=== PATIENT | female | born 1995 | race Caucasian/White ===

== ENCOUNTER 2018-09-25 05:17 | Emergency (ER) | payer OTHER ==
[2018-09-25] MEDS ORDERED: DiphenhydrAMINE HCL 50 MG/ML VIAL ONE (06:09)
[2018-09-25] MEDS ORDERED: ONDANSETRON ODT 4 MG TAB ONE (06:09)
[2018-09-25 06:13] LABS: APPEARANCE,URINE CLOUDY (CLEAR); BILIRUBIN,URINE SMALL (NEGATIVE); COLOR,URINE RED (YELLOW); GLUCOSE, URINE (UA) NEGATIVE (NEGATIVE); KETONES,URINE 15 mg/dL (NEGATIVE); LEUKOCYTE ESTERASE ,URINE TRACE (NEGATIVE); NITRATE,URINE NEGATIVE (NEGATIVE); OCCULT BLOOD,URINE LARGE (NEGATIVE); PH,URINE 6.5 (5.0-8.0); PROTEIN,URINE 100 (NEGATIVE)
[2018-09-25 06:16] LABS: HCG,QUAL RESULT NEGATIVE (NEGATIVE)
[2018-09-25 06:19] LABS: BACTERIA,URINE Few /HPF (None Seen); RBC,URINE >100 /HPF (0-1)
[2018-09-25 06:25] LABS: AMPHET/METH SCREEN,URINE NEGATIVE (NEGATIVE); BARBITURATE SCREEN, URINE NEGATIVE (NEGATIVE); BENZODIAZEPINES SCREEN,URINE NEGATIVE (NEGATIVE); CANNABINOID SCREEN,URINE POSITIVE (NEGATIVE); COCAINE SCREEN,URINE NEGATIVE (NEGATIVE); OPIATE SCREEN,URINE NEGATIVE (NEGATIVE); PHENCYCLIDINE SCREEN,URINE NEGATIVE (NEGATIVE)
[2018-09-25] MEDS ORDERED: BENZONATATE 100 MG CAPSULE PO ONE (07:37)
== END 2018-09-25 08:05 | disposition home or self-care (01) ==
LOC: EDH 05:17
DX: F43.22 Adjustment disorder with anxiety (principal); J20.9 Acute bronchitis, unspecified; Z72.0 Tobacco use
CPT/HCPCS: 71046; 80305; 81001; 81025; 93005; 96372; 99284; J1200

== ENCOUNTER 2020-12-19 20:12 | Emergency (ER) | payer OTHER | END 2020-12-19 22:10 | disposition home or self-care (01) | LOC: EDH 20:12 | DX: R07.89 Other chest pain (principal); F41.9 Anxiety disorder, unspecified; Z90.49 Acquired absence of other specified parts of digestive tract; Z87.891 Personal history of nicotine dependence | CPT/HCPCS: 71045 ==

== ENCOUNTER 2021-10-24 22:18 | Emergency (ER) | payer OTHER ==
[~2021-10-24] VITALS: Ht 162.6 cm; Wt 68.0 kg
[2021-10-24 22:42] VITALS: BP 145/72
[2021-10-25 00:28] LABS: APPEARANCE,URINE Clear (CLEAR); BILIRUBIN,URINE Negative (NEGATIVE); COLOR,URINE Yellow (YELLOW); GLUCOSE, URINE (UA) Negative (NEGATIVE); KETONES,URINE Negative (NEGATIVE); LEUKOCYTE ESTERASE ,URINE Negative (NEGATIVE); NITRATE,URINE Negative (NEGATIVE); OCCULT BLOOD,URINE Negative (NEGATIVE); PROTEIN,URINE Negative (NEGATIVE); UROBILINOGEN,URINE 0.2 mg/dL (0.2-1.0)
[2021-10-25 00:33] LABS: HCG,QUAL RESULT NEGATIVE (NEGATIVE)
[2021-10-25] MEDS ORDERED: AMOX1TAB16 PO (00:52)
[2021-10-25] MEDS ORDERED: FLUC150T PO (00:52)
== END 2021-10-25 01:20 | disposition home or self-care (01) ==
LOC: EDH 22:18
DX: L02.215 Cutaneous abscess of perineum (principal); B35.4 Tinea corporis
CPT/HCPCS: 81003; 81025

== ENCOUNTER 2023-06-17 21:44 | Emergency (ER) | payer BC, OTHER ==
[~2023-06-17] VITALS: Ht 162.6 cm; Wt 76.2 kg
[~2023-06-17 21:44] MED LIST: AMOX1TAB16 PO; FLUC150T PO
[2023-06-18 00:28] LABS: BASOPHILS # (AUTO) 0.06 K/uL (0.00-0.20); BASOPHILS % (AUTO) 0.5 % (0.0-5.0); EOSINOPHILS # (AUTO) 0.06 K/uL (0.00-0.70); EOSINOPHILS % (AUTO) 0.5 % (0.0-8.0); HEMATOCRIT 43.9 % (36-48); IMMATURE GRANULOCYTE ABSOLUTE 0.04 K/uL (0-1); LYMPHOCYTES # (AUTO) 3.7 K/uL (1.0-4.8); LYMPHOCYTES % (AUTO) 28.7 % (21.0-51.0); MEAN CORPUSCULAR HEMOGLOBIN 28.3 pg (27.0-33.0); MEAN CORPUSCULAR HGB CONC 32.8 g/dL (32.0-36.0); MEAN CORPUSCULAR VOLUME 86.4 fL (79-99); MONOCYTES # (AUTO) 0.8 K/uL (0.1-1.0); MONOCYTES % (AUTO) 6.4 % (3.0-13.0); NEUTROPHILS # (AUTO) 8.2 K/uL (1.8-7.7); NEUTROPHILS % (AUTO) 63.6 % (40.0-77.0); PLATELET COUNT (AUTO) 276 K/uL (130-400); RED BLOOD CELL COUNT(AUTO) 5.08 MIL/uL (4.00-5.50); RED CELL DISTRIBUTION WIDTH 12.6 % (11.0-15.5); WHITE BLOOD COUNT (AUTO) 12.9 K/uL (4.8-10.8)
[2023-06-18] MEDS ORDERED: LACTATED RINGERS 1000ML 1,000 ML IV ONE (00:30)
[2023-06-18] MEDS ORDERED: MORPHINE 4 MG SYG IVP ONE (00:30)
[2023-06-18] MEDS ORDERED: METOCLOPRAMIDE 10 MG/2 ML VIAL IVP ONE (00:30)
[2023-06-18 00:36] LABS: CARBON DIOXIDE 30 mmol/L (21-32); CHLORIDE 100 mmol/L (101-111); CREATININE 0.8 mg/dL (0.5-1.5); GLOMERULAR FILTR. RATE CALC 104 mL/min (>90); GLUCOSE,RANDOM 67 mg/dL (70-105); POTASSIUM 3.9 mmol/L (3.5-5.1); SODIUM SERUM 137 mmol/L (136-145); UREA NITROGEN, BLOOD 9 mg/dL (7-18)
[2023-06-18] MEDS ORDERED: IOHEXOL-350 75 ML VIAL IV ONE (01:12)
[2023-06-18 02:25] VITALS: BP 106/52; PULSE 62; RESP 16; O2SAT 97
[2023-06-18] MEDS ORDERED: POLY17PO4 PO (02:51)
== END 2023-06-18 03:16 | disposition home or self-care (01) ==
LOC: EDH 21:44
DX: K59.00 Constipation, unspecified (principal)
CPT/HCPCS: 99284; 80048; 84703; 85025; 83605; 36415; 74178; 96374; 96361; 96375; J7120; J2270; J2765; Q9967

== ENCOUNTER 2023-06-20 17:16 | Emergency (ER) | payer BC ==
[~2023-06-20] VITALS: Ht 162.6 cm; Wt 74.8 kg
[~2023-06-20 17:16] MED LIST changes: +POLY17PO4 PO
[2023-06-20] MEDS ORDERED: LACTATED RINGERS 1000ML 1,000 ML IV ONE (18:00)
[2023-06-20] MEDS ORDERED: MORPHINE 4 MG SYG IVP ONE (18:00)
[2023-06-20] MEDS ORDERED: ONDANSETRON 4MG INJ IVP ONE (18:00)
[2023-06-20 18:11] LABS: BASOPHILS # (AUTO) 0.06 K/uL (0.00-0.20); BASOPHILS % (AUTO) 0.6 % (0.0-5.0); EOSINOPHILS # (AUTO) 0.06 K/uL (0.00-0.70); EOSINOPHILS % (AUTO) 0.6 % (0.0-8.0); HEMATOCRIT 38.9 % (36-48); IMMATURE GRANULOCYTE ABSOLUTE 0.03 K/uL (0-1); LYMPHOCYTES % (AUTO) 29.2 % (21.0-51.0); MEAN CORPUSCULAR HEMOGLOBIN 28.2 pg (27.0-33.0); MEAN CORPUSCULAR HGB CONC 32.6 g/dL (32.0-36.0); MEAN CORPUSCULAR VOLUME 86.3 fL (79-99); MONOCYTES # (AUTO) 0.7 K/uL (0.1-1.0); MONOCYTES % (AUTO) 6.8 % (3.0-13.0); NEUTROPHILS # (AUTO) 6.4 K/uL (1.8-7.7); NEUTROPHILS % (AUTO) 62.5 % (40.0-77.0); PLATELET COUNT (AUTO) 247 K/uL (130-400); RED BLOOD CELL COUNT(AUTO) 4.51 MIL/uL (4.00-5.50); RED CELL DISTRIBUTION WIDTH 12.6 % (11.0-15.5); WHITE BLOOD COUNT (AUTO) 10.2 K/uL (4.8-10.8)
[2023-06-20] MEDS ORDERED: KETOROLAC 60 MG VIAL (30MG/ML) IM ONE (18:19)
[2023-06-20 18:25] LABS: CREATININE 0.7 mg/dL (0.5-1.5); POTASSIUM 4.2 mmol/L (3.5-5.1)
[2023-06-20 18:30] LABS: ALBUMIN 3.9 g/dL (3.5-5.0); BILIRUBIN,TOTAL 0.2 mg/dL (0.2-1.0); TOTAL PROTEIN, SERUM 7.9 g/dL (6.0-8.3)
[2023-06-20] MEDS ORDERED: KETOROLAC 30MG VIAL (30MG/ML) IVP ONE (18:30)
[2023-06-20] MEDS ORDERED: MORPHINE 2 MG SYG ONE (19:52)
[2023-06-20] MEDS ORDERED: MORPHINE 8MG VIAL IVP ONE (20:00)
[2023-06-20] MEDS ORDERED: LACTATED RINGERS 1000ML 1,000 ML IV SCH (20:00)
[2023-06-20] MEDS ORDERED: MORPHINE 8MG VIAL IM ONE (20:00)
[2023-06-20] MEDS ORDERED: ACET-2079 PO (20:14)
[2023-06-20 20:39] VITALS: BP 124/69; PULSE 55; RESP 16; O2SAT 98
== END 2023-06-20 20:40 | disposition home or self-care (01) ==
LOC: EDH 17:16
DX: R10.2 Pelvic and perineal pain (principal); K59.00 Constipation, unspecified; Z90.49 Acquired absence of other specified parts of digestive tract
CPT/HCPCS: 99284; 96374; 96361; 96375; 80053; 85025; 87040 ×2; 83605; 36415; J7120 ×2; J2270 ×3; J2405; J1885

== ENCOUNTER 2024-01-18 17:38 | Emergency (ER) | payer BC ==
[~2024-01-18] VITALS: Ht 160 cm; Wt 70.3 kg
[~2024-01-18 17:38] MED LIST changes: +ACET-2079 PO
[2024-01-18] MEDS: NAPROXEN 250 MG TAB PO ONE (18:41)
[2024-01-18] MEDS ORDERED: NAPR375T6 PO (18:52)
[2024-01-18 19:39] VITALS: BP 127/71; PULSE 78; RESP 18; O2SAT 98
== END 2024-01-18 19:40 | disposition home or self-care (01) ==
LOC: EDH 17:38
DX: S60.011A Contusion of right thumb without damage to nail, initial encounter (principal); Z90.49 Acquired absence of other specified parts of digestive tract; Z98.890 Other specified postprocedural states; W23.0XXA Caught, crushed, jammed, or pinched between moving objects, initial encounter; Y93.89 Activity, other specified; Y92.89 Other specified places as the place of occurrence of the external cause; Y99.8 Other external cause status
CPT/HCPCS: 73140

== ENCOUNTER 2024-10-25 15:44 | Emergency (ER) | payer SELFPAY ==
[~2024-10-25] VITALS: Ht 162.6 cm; Wt 72.6 kg
[~2024-10-25 15:44] MED LIST changes: +NAPR-1505 PO
[2024-10-25] MEDS: acetaMINOPHEN 325 MG TAB PO STA (17:06)
--- NOTE | 2024-10-25 17:54 | HMCIMG ---
CT HEAD WITHOUT CONTRAST INDICATION: Headache TECHNIQUE: Noncontrast axial helical CT images from the vertex through the skull base using 5 mm slice thickness without contrast material. CT was performed with one or more of the following dose reduction techniques: Automated exposure control, adjustment of the mA and/or kV according to patient size, or use of iterative reconstruction technique. COMPARISON: None FINDINGS: The cerebral and cerebellar hemispheres are age-appropriate in appearance. No evidence for abnormal extra-axial fluid collections or masses. The ventricles and sulci are normal in size and configuration. No evidence for intracranial parenchymal, epidural, or subdural hemorrhage, mass effect or midline shift. The muller-white matter differentiation is well preserved. No secondary evidence to suggest acute ischemia. The brainstem and cerebellum appear normal. The visualized orbits appear unremarkable. The visible paranasal sinuses and mastoid air cells are clear. The calvarium appears normal. IMPRESSION: No acute intracranial process identified.
--- NOTE | 2024-10-25 18:16 | ERN ---
ED Note History of Present Illness Stated Complaint: HEAD INJURY Chief Complaint: Head Injury Time Seen by MD: 15:49 Time Seen by Midlevel: 15:53 Dictation: 29-YEAR-OLD FEMALE WITH NO PAST MEDICAL HISTORY COMING IN COMPLAINING OF HEADACHE AND NAUSEA AFTER HITTING HERSELF WITH A CEILING FAN LAST NIGHT AT FOUR IN THE MORNING. 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 DENIES ANY DIZZINESS, VOMITING, FEVERS. Allergies: Coded Allergies: No Known Drug Allergies (Unverified Allergy, Unknown, 10/24/21) Home Meds Active Scripts Naproxen (Naproxen) 375 Mg Tablet.dr, 375 MG PO BID for 7 Days, #14 TAB Prov:DAVID WOLFE MD 01/18/24 Acetaminophen with Codeine (Acetaminophen-Cod #3 Tablet) 300 Mg-30 Mg Tablet, 2 TAB PO Q6H PRN for PAIN LEVEL 7 TO 10, #40 TAB 0 Refills Prov:SALVADOR PITT Sr., MD 06/20/23 Polyethylene Glycol 3350 (Miralax) 17 Gram Powd.pack, 17 GM PO TID for constipation, #30 PACKET 2 Refills Prov:SALVADOR PITT Sr., MD 06/18/23 Fluconazole (Diflucan) 150 Mg Tablet, 1 TAB PO DAILY, #1 TAB 0 Refills Prov:ATTILA JAY MD 10/25/21 Amoxicillin/Potassium Clav (Amox Tr-K Clv 875-125 mg Tab) 1 Each Tablet, 1 EACH PO BID for 7 Days, #14 TAB 0 Refills Prov:ATTILA JAY MD 10/25/21 Past Medical History Past Medical History: No Pertinent History Surgical History: Appendectomy, Other Surgical History Other: CRANIOTOMY Social History: Negative, Lives with family, Other LMP: Oct 23, 2024 Review of System Dictation CONSTITUTIONAL: NEGATIVE FOR FEVER,CHILLS, AND WEIGHT LOSS EYES: NEGATIVE FOR INJURY, PAIN,REDNESS, AND DISCHARGE ENT: NEGATIVE FOR INJURY,PAIN OR SWELLING CARDIOVASCULAR: NEGATIVE FOR CHEST PAIN, PALPITATIONS, AND EDEMA RESPIRATORY: NEGATIVE FOR SHORTNESS OF BREATH, COUGH, AND WHEEZING, ABDOMEN/GI: NEGATIVE FOR ABDOMINAL PAIN, NAUSEA, VOMITING, DIARRHEA, AND CONSTIPATION BACK: NEGATIVE FOR INJURY AND PAIN : NEGATIVE FOR INJURY, BLEEDING AND DISCHARGE MS/EXTREMITY: NEGATIVE FOR INJURY AND DEFORMITY SKIN: NEGATIVE FOR RASH, AND DISCOLORATION NEURO: POSITIVE FOR HEADACHE, NO WEAKNESS, NO NUMBNESS, NO TINGLING, AND NO SEIZURE PSYCH: NEGATIVE FOR SUICIDE IDEATION, HOMICIDAL IDEATION, AND HALLUCINATIONS Review of Systems: was completed Initial Vital Sign VS Vital Signs Date Time Temp Pulse Resp B/P (MAP) Pulse Ox O2 Delivery O2 Flow Rate FiO2 10/25/24 16:02 98.1 75 20 136/89 100 Room Air 0 Physical Exam Dictation GENERAL: AWAKE, ALERT, NAD HEAD/FACE: NORMOCEPHALIC, ATRAUMATIC EYES: PERRL, EOMI, VISION AT BASELINE ENT: ORAL CAVITY CLEAR, TMS CLEAR, NO SIGNS OF INFECTION NECK: TRACHEA MIDLINE, SUPPLE, NO NUCHAL RIGIDITY CARDIOVASCULAR: RRR, NORMAL S1/S2, NO MRGS, NO JVD RESPIRATORY: CTAB, NO RESPIRATORY DISTRESS, NO RALES OR WHEEZES ABDOMEN: SOFT, NON-TENDER, NON-DISTENDED, NORMAL BOWEL SOUNDS, NO GUARDING OR REBOUND. SKIN: WARM, DRY, NORMAL TURGOR, NO RASH MS/EXTREMITY: PULSES EQUAL, NO CYANOSIS, NEUROVASCULAR INTACT, FROM NEURO: COAX4, GCS 15, STRENGTH 5/5, CN 2-12 INTACT, NORMAL CEREBELLAR EXAM, NORMAL GAIT, PSYCH: NORMAL BEHAVIOR, MOOD, AND AFFECT NORMAL Results (Laboratory/Radiology) CT Scan Comment: [place] [address] IMAGING REPORT Signed PATIENT: ANDREAS MATSON MR#: [id number] : 1995 SEX: F AGE: 29 LOCATION: ED ORDER 1605 STATUS: REG REPORT#: [id number] SERVICE 1602 REASON: HEADACHE ORDERING PHYSICIAN: YVETTE ANDRADE NP PROCEDURE: HEAD WO - CT HEAD/BRAIN W/O CONTRAST CT HEAD WITHOUT CONTRAST INDICATION: Headache TECHNIQUE: Noncontrast axial helical CT images from the vertex through the skull base using 5 mm slice thickness without contrast material. CT was performed with one or more of the following dose reduction techniques: Automated exposure control, adjustment of the mA and/or kV according to patient size, or use of iterative reconstruction technique. COMPARISON: None FINDINGS: The cerebral and cerebellar hemispheres are age-appropriate in appearance. No evidence for abnormal extra-axial fluid collections or masses. The ventricles and sulci are normal in size and configuration. No evidence for intracranial parenchymal, epidural, or subdural hemorrhage, mass effect or midline shift. The muller-white matter differentiation is well preserved. No secondary evidence to suggest acute ischemia. The brainstem and cerebellum appear normal. The visualized orbits appear unremarkable. The visible paranasal sinuses and mastoid air cells are clear. The calvarium appears normal. IMPRESSION: No acute intracranial process identified. DICTATED BY: WENDY BULL MD DATE: 10/25/24 1749 ELECTRONICALLY SIGNED BY: WENDY BULL MD DATE: 10/25/24 175 ED Course ED Course Orders Procedure Category Date Status Time Acetaminophen 325 Tab PHA 10/25/24 Complete (Tylenol 325mg Tab 16:02 Ct Head/Brain W/O CT 10/25/24 Resulted Contrast 16:02 Current Medications Medications (Trade) Dose Ordered Sig/Marcella Route PRN Reason Start Time Stop Time Status Last Admin Dose Admin Acetaminophen (TYLenol 325MG TAB) 650 mg ONCE STAT PO 10/25/24 16:02 10/25/24 16:11 DC 10/25/24 17:06 Vital Signs Date Time Temp Pulse Resp B/P (MAP) Pulse Ox O2 Delivery O2 Flow Rate FiO2 10/25/24 16:02 98.1 75 20 136/89 100 Room Air 0 Medical Decision Making MDM MDM: 29-YEAR-OLD FEMALE WITH NO PAST MEDICAL HISTORY COMING IN COMPLAINING OF HEADACHE AND NAUSEA AFTER HITTING HERSELF WITH A CEILING FAN LAST NIGHT AT FOUR IN THE MORNING. 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 DENIES ANY DIZZINESS, VOMITING, FEVERS. CT SCAN OF THE HEAD IS NEGATIVE. DISCUSSED FINDINGS WITH THE PATIENT. EDUCATED PATIENT TO TAKE TYLENOL OR MOTRIN [id number] FOR PAIN CONTROL. EDUCATED ON RED FLAG SYMPTOMS ON WHEN TO RETURN BACK TO THE ER. PATIENT VERBALIZED UNDERSTANDING, ANSWERED ALL QUESTI ONS. DIFFERENTIAL DIAGNOSIS: ICH, CONCUSSION RATIONALE: TESTS CONSIDERED AND ORDERED SECONDARY TO SHARED DECISION MAKING INCLUDE: PREVIOUS OUTSIDE RECORDS REVIEWED: OLD ER VISITS. RISK OF COMPLICATION AND/OR MORBIDITY OR MORTALITY OF PATIENT MANAGEMENT: NONE MEDICATIONS-PER MEDICATION RECONCILIATION NEED FOR HOSPITALIZATION: PATIENT DOES NOT MEET CRITERIA FOR HOSPITALIZATION. NEED FOR EMERGENCY MAJOR/MINOR SURGERY: NO THERE ARE NO SOCIAL CONCERNS WITH THIS PATIENT. PRESCRIPTION DRUG MANAGEMENT PRESCRIPTIONS WILL INCLUDE SYMPTOMATIC CARE PATIENT'S PRIOR EXTERNAL MEDICAL RECORDS FROM OTHER ER VISITS WERE REVIEWED BY ME INDICATED. PRIOR TESTING AND RESULTS FROM PREVIOUS VISITS WERE REVIEWED. PRIOR TESTS WERE TAKEN INTO ACCOUNT WITH MEDICAL DECISION MAKING AND RESOURCE UTILIZATION, INDEPENDENT HISTORIAN/HISTORIANS WERE USED TO OBTAIN COMPLETE MEDICAL HISTORY. I INDEPENDENTLY INTERPRETED THE TEST THAT WERE PERFORMED, RESULTS WERE REVIEWED BY ME AND CONSIDERED FINDINGS ON RADIOLOGY IF ORDERED. MEDICAL MANAGEMENT AND EXAMINATION INTERPRETATION DISCUSSIONS WERE HAD BY ME WITH OTHER QUALIFIED HEALTHCARE PROFESSIONALS INDICATED FOR THE PATIENT'S CARE. DX & DISP Disposition: Discharge Departure Impression: Primary Impression: Head contusion Condition: Stable Additional Instructions: TAKE TYLENOL OR MOTRIN FOR PAIN CONTROL. FOLLOW UP WITH THE PCP IN 1-2 DAYS. RETURN TO THE ER IF YOU HAVE WORSENING HEADACHE, NAUSEA, VOMITING. Referrals: SELF,REFERRAL (PCP) Time of Disposition: 18:12 I have reviewed the case, and I agree with, Diagnosis and Plan YVETTE ANDRADE NP Oct 25, 2024 18:16
[2024-10-25 18:19] VITALS: BP 131/85; PULSE 74; RESP 20; TEMP 98.1; O2SAT 100
== END 2024-10-25 18:24 | disposition home or self-care (01) ==
LOC: EDH 15:44
DX: S00.93XA Contusion of unspecified part of head, initial encounter (principal); Z90.49 Acquired absence of other specified parts of digestive tract; Z98.890 Other specified postprocedural states; X58.XXXA Exposure to other specified factors, initial encounter; Y93.89 Activity, other specified; Y92.89 Other specified places as the place of occurrence of the external cause; Y99.8 Other external cause status
CPT/HCPCS: 70450; 99284